=== PATIENT | female | born 1965 ===

== ENCOUNTER 2019-04-18 15:31 | Outpatient (CLI) | payer OTHER ==
[~2019-04-18] VITALS: Ht 162.6 cm; Wt 69.9 kg
== END 2019-04-18 15:45 | disposition home or self-care (01) ==
LOC: OFIC 805 15:31
DX: H61.23 Impacted cerumen, bilateral (principal); R49.0 Dysphonia

== ENCOUNTER 2019-12-21 08:00 | Day surgery (SDC) | payer OTHER ==
[~2019-12-21 08:00] MED LIST: COMPLETE OMEGA1 EACH PO; FORTAMET500 MG PO; LIPITOR PO; LOSARTAN POTASS50 MG PO; M.V.I. ADULT10 ML IV; PEMPRO PO; TUMERIC PO; ZERTEC PO
== END 2019-12-21 13:00 | disposition home or self-care (01) ==
LOC: CIR.AMB 08:00
DX: N84.0 Polyp of corpus uteri (principal)